=== PATIENT | female | born 1980 | race Caucasian/White ===

== ENCOUNTER 2020-11-29 21:26 | Emergency (ER) | payer SELFPAY ==
[~2020-11-29] VITALS: Ht 160 cm; Wt 56.7 kg
--- NOTE | 2020-11-29 21:45 | NUR ---
[facility] AND [employer] FOR [facility] EVAL. PT CALLED [employer] AND REPORTED SI, PT TO BED 14, AWAKE/ALERT, DENIES ANY SOB/CP. GOWNED, SI PRECAUTIONS INITIATED, PT COOPERATIVE WITH STAFF. VSS. PENDING ER PROVIDER MARK
[2020-11-29 22:15] LABS: BASOPHILS # (AUTO) 0.1 /CMM (0.0-0.2); EOSINOPHILS % (AUTO) 6.5 % (0.0-6.0); HEMATOCRIT 43 % (33-45); HEMOGLOBIN 14.4 g/dL (11.5-14.8); LYMPHOCYTES # (AUTO) 1.4 /CMM (0.8-4.8); LYMPHOCYTES % (AUTO) 28.1 % (20.0-44.0); MEAN CORPUSCULAR HGB CONC 33 g/dl (31.0-36.0); MEAN CORPUSCULAR VOLUME 94 fL (82-100); MONOCYTES # (AUTO) 0.4 /CMM (0.1-1.30); MONOCYTES % (AUTO) 8.4 % (2.0-12.0); NEUTROPHILS # (AUTO) 2.7 /CMM (1.8-8.9); PLATELET COUNT (AUTO) 311 /CMM (150-450)
[2020-11-29 22:39] LABS: CALCIUM, SERUM 8.4 mg/dL (8.5-10.1); CARBON DIOXIDE 26 mmol/L (21-32); CHLORIDE 108 mmol/L (98-107); CREATININE 0.7 mg/dL (0.6-1.3); GLUCOSE 94 mg/dL (74-106); POTASSIUM 3.3 mmol/L (3.5-5.1); SODIUM SERUM 145 mmol/L (136-145); UREA NITROGEN, BLOOD 6 mg/dL (7-18)
[2020-11-29 22:41] LABS: BILIRUBIN,URINE Negative (NEGATIVE); COLOR,URINE YELLOW (YELLOW); LEUKOCYTE ESTERASE ,URINE Negative (NEGATIVE); NITRITE, URINE Negative (NEGATIVE); PH,URINE 5.5 (5.0-8.0); PROTEIN,URINE Negative (NEGATIVE); UGLUCOSE 100 MG/DL mg/dL (NEGATIVE); UROBILINOGEN,URINE 0.2 EU/dL (0.2)
[2020-11-29 22:43] LABS: BACTERIA,URINE Rare /HPF (None Seen); SQUAMOUS EPITHELIAL CELL,UR Few /HPF (None Seen); WBC,URINE NONE SEEN /HPF (0-3)
[2020-11-29 22:56] LABS: ALANINE AMINOTRANSFERASE 179 U/L (12-78); ALBUMIN 4.1 g/dL (3.4-5.0); ALCOHOL, BLOOD 274 mg/dL (0-0); ALKALINE PHOSPHATASE 50 U/L (46-116); ASPARTATE AMINOTRANSFERASE 126 U/L (15-37); BILIRUBIN,DIRECT 0.1 mg/dL (0.0-0.2); BILIRUBIN,TOTAL 0.2 mg/dL (0.2-1.0); TOTAL PROTEIN, SERUM 8.4 g/dL (6.4-8.2)
[2020-11-29 22:57] LABS: ACETAMINOPHEN < 2 ug/ml (10-30)
--- NOTE | 2020-11-29 23:19 | NUR ---
ANTIGERN VOVID RESULTS: NEGATIVE
--- NOTE | 2020-11-29 23:19 | NUR ---
Patricia solorzano in [facility] - 11/29/20 at 2319 by MITZI ////////zoey results: negative
--- NOTE | 2020-11-30 06:00 | NUR ---
Patient is resting comfortably in bed with eyes closed. Easily aroused. VSS
--- NOTE | 2020-11-30 08:50 | NUR ---
pt awake, verbally responsive. dr oden in for re eval. denies si/hi stating she was just drunk. pt is medically cleared for discharge.
--- NOTE | 2020-11-30 09:27 | NUR ---
Patient discharged to home in stable condition. Written and verbal after care instructions given. Patient verbalizes understanding of instruction.
--- NOTE | 2020-11-30 09:28 | NUR ---
Pt picked up by significant other. Pt stable, nad distress noted & amb with steady gait upon leaving ED.
[2020-11-30 09:30] VITALS: BP 110/65
--- NOTE | 2020-11-30 11:07 | NUR ---
Steward/Stewardess Note: Steward/Stewardess consult requested to meet with the patient. Patient was picked up by a significant other. Patient was already discharged prior to arrival.
== END 2020-11-30 09:30 | disposition home or self-care (01) ==
LOC: ER 21:26
DX: F10.129 Alcohol abuse with intoxication, unspecified (principal); Y90.8 Blood alcohol level of 240 mg/100 ml or more; Z20.822 Contact with and (suspected) exposure to COVID-19; J45.909 Unspecified asthma, uncomplicated; R45.1 Restlessness and agitation
CPT/HCPCS: 36415; 80048; 80076; 80299; 80307; 80320; 81001; 84703; 85025; 87426; 99284; C9803; G0480